=== PATIENT | female | born 1990 | race Caucasian/White ===

== ENCOUNTER 2022-07-19 14:18 | Inpatient (IN) | payer OTHER ==
[~2022-07-19] VITALS: Ht 165.1 cm; Wt 2.7 kg
[2022-07-27] MEDS ORDERED: PRENATAL TABLE1 EAC1 PO (10:30)
== END 2022-07-30 13:20 | disposition home or self-care (01) | DRG 788 ==
LOC: O/R 07-27 08:33 → OB/GYN 07-27 11:34
PROVIDERS: ADMIT Specialist; ATTEND Specialist
PROC: 4A1HXCZ Monitoring of Products of Conception, Cardiac Rate, External Approach (ICD-10-PCS; 2022-07-27)
PROC: 10D00Z1 Extraction of Products of Conception, Low, Open Approach (ICD-10-PCS; principal; 2022-07-27 12:30)
DX: O34.211 Maternal care for low transverse scar from previous cesarean delivery (principal); Z3A.38 38 weeks gestation of pregnancy; Z37.0 Single live birth; Z20.822 Contact with and (suspected) exposure to COVID-19